=== PATIENT | male | born 1970 | race Caucasian/White ===

== ENCOUNTER 2020-04-07 12:38 | Emergency (ER) | payer OTHER, SELFPAY ==
[2020-04-07 12:39] VITALS: BP 125/101; PULSE 101; RESP 16; TEMP 36.7; O2SAT 98; BMI 29.5
--- NOTE | 2020-04-07 13:30 | CT_ITS ---
STUDY: CT BRAIN WITHOUT CONTRAST REASON FOR EXAM: Male, 49 years old. LIGHTHEADED/DIZZY THIS AM, N/V RADIATION DOSAGE (If Supplied By Facility): CTDIvol = ( 44.99 ) mGy, DLP = ( 745.49 ) mGycm TECHNIQUE: Transaxial CT imaging of the brain was performed without administration of intravenous contrast material. Individualized dose optimization techniques were used for this CT. COMPARISON: No relevant priors. FINDINGS: Normal soft tissue structures. Normal calvarium. Normal size ventricles and extra-axial spaces for the patient''s age. Normal white matter tracts of the cerebral hemispheres. Normal basal ganglia and thalami. Normal brainstem. Normal cerebellum. There is no intracranial hemorrhage. There are no findings of an acute ischemic infarction. Partial opacification of the left maxillary sinus. Mucosal thickening of the right maxillary sinus as well as the ethmoid sinus. Mucosal thickening of the right sphenoid sinus. Nasal septal deviation towards the right side of the midline. CT/Brain/Head without Contrast IMPRESSION: Normal unenhanced CT scan of the brain. Sinusitis. Electronically Signed: Brian Lockwood MD at 14:10 EST , Service support ,
--- NOTE | 2020-04-07 13:30 | EKG12_ITS ---
Test Reason : DIZZY Blood Pressure : / mmHG Vent. Rate : 100 BPM Atrial Rate : 100 BPM P-R Int : 128 ms QRS Dur : 082 ms QT Int : 336 ms P-R-T Axes : 056 063 032 degrees QTc Int : 433 ms Normal sinus rhythm Nonspecific T wave abnormality Abnormal ECG Confirmed by NATIVIDAD ELAINE, NICOLÁS ([id number]), science editor KAROL KAUR ([id number]) on 04/10/2020 1:38:39 PM Referred By: COREY Confirmed By:NICOLÁS HENSON MD
--- NOTE | 2020-04-07 13:32 | ED.DCSUM_ITS ---
- ER Visit Summary Date of Service: 04/07/20 Chief Complaint: Dizziness History of Present Illness: The patient is a 49 M presenting with dizziness. Patient states that he started having a dizzy, lightheadedness feeling. He felt like his eyes were moving. He felt off balance. He had nausea and vomiting. He states the symptoms worsened with turning his head. No symptoms when remaining still. Denies recent injury. Denies headache. Denies chest pain or shortness of breath. Denies fever. No other complaints. Physical Examination: Vitals are stable. Patient is afebrile. Alert no acute distress. HEENT exam is unremarkable. Neck is supple. Lungs are clear and equal bilaterally. Heart is regular rate and rhythm. Abdomen is soft nontender nondistended. Extremities are unremarkable. Skin is warm and dry. No focal neurologic deficit. Normal strength and sensation Remainder of exam is unremarkable. Emergency Department Course and Treatment: EKG is sinus rate of 100 with no acute ischemic changes. CT head shows normal unenhanced CT scan of the brain. CBC, chemistries unremarkable. Troponin is negative. On reevaluation, patient's symptoms have resolved. Delta troponin will be obtained and is pending. This will be checked out to the oncoming physician. If delta troponin is negative he will be sent home with prescription for Antivert. He is given Dr. Everett on-call for no doctor for follow-up. Advised return to ED for worsening complaints. Disposition: Pending Impression: Positional vertigo This note was generated with Immediately dictation software. It may contain incorrect words, spelling, and punctuation that were not noted in review of the chart prior to signing ED Disposition - Plan for ED Patient: Instructions: ED BPV Vertigo Prescriptions: Meclizine HCl [Antivert] 25 mg PO TID PRN PRN #20 tab PRN Reason: Vertigo Prescription Printed Referrals: Torito Everett DO [NON CLINICAL AFFILIATE] -
[2020-04-07 13:54] LABS: Absolute Lymphocyte Count 1.34 X10^3/uL (0.83-4.51); Absolute Neutrophil Count 8.2 X10^3/uL (2.0-7.7); Basophil# 0.04 X10^3/uL; Basophil% 0.4 % (0-1); Eosinophil# 0.07 X10^3/uL; Eosinophils% 0.7 % (0-5); Hematocrit 49.1 % (40-54); Lymphocyte # 1.34 X10^3/ul (4.0); Lymphocyte % 12.9 % (19-41); Mean Corp Hgb Conc 32.6 g/dL (32-36); Mean Corpuscular Hgb 30.4 pg (27.0-32.0); Mean Corpuscular Volume 93.2 fL (80-94); Mean Platelet Vol. 9.2 fl (6.2-12.0); Monocyte# 0.63 X10^3/uL; Monocyte% 6.1 % (0-10); NRBC Flagged by Analyzer 0 % (0-5); Neutrophil # 8.24 X10^3/uL (2.7-7.7); Neutrophil % 79.3 % (47-70); Platelet Count 445 K/mm3 (150-450); RBC Distribution Width CV 13.1 % (11.6-14.6); RBC Distribution Width SD 44.5 fl (35.1-43.9); Red Blood Count 5.27 M/mm3 (4.6-6.2); White Blood Count 10.4 K/mm3 (4.4-11.0)
[2020-04-07 14:11] LABS: Anion Gap 5 (5-15); BUN 11 mg/dL (7-18); BUN/Creat Ratio 9.5 RATIO (10-20); Calcium,Total 9.2 mg/dL (8.5-10.1); Chloride 105 mmol/L (98-107); Creatinine, Serum 1.16 mg/dL (0.70-1.30); EST Glomerular Filtration Rate 70 mL/min (>60); Est Glom Filt Rate - Afr Amer 85 mL/min (>60); Estimated Creatinine Clearance 75.34 ml/min; Glucose 136 mg/dL (74-106); Potassium 3.8 mmol/L (3.5-5.1); Sodium Level 138 mmol/L (136-145)
[2020-04-07 15:21] VITALS: BP 112/65; PULSE 85; RESP 15; O2SAT 99
--- NOTE | 2020-04-07 15:41 | ED.DEP ---
ED Disposition - Plan for ED Patient: Instructions: ED BPV Vertigo Prescriptions: Meclizine HCl [Antivert] 25 mg PO TID PRN PRN #20 tab PRN Reason: Vertigo Prescription Printed Referrals: Torito Everett DO [NON CLINICAL AFFILIATE] -
[2020-04-07 17:18] VITALS: BP 126/86; PULSE 84; RESP 14; O2SAT 96
[2020-04-07 18:02] VITALS: BP 133/91; PULSE 88; RESP 17; O2SAT 98
== END 2020-04-07 18:10 | disposition home or self-care (01) ==
LOC: ED 14:40
PROVIDERS: Emergency Provider Emergency Medicine
DX: H81.10 Benign paroxysmal vertigo, unspecified ear (principal)
CPT/HCPCS: 36415; 70450; 80048; 84484; 85025; 93005; 99284; A4216

== ENCOUNTER → 2020-07-17 07:19 | Outpatient (CLI) | payer OTHER, SELFPAY ==
[2020-07-17 10:10] LABS: Hematocrit 52.7 % (40-54); Mean Corp Hgb Conc 32.3 g/dL (32-36); Mean Corpuscular Hgb 30.2 pg (27.0-32.0); Mean Corpuscular Volume 93.6 fL (80-94); Mean Platelet Vol. 9.9 fl (6.2-12.0); Platelet Count 304 K/mm3 (150-450); RBC Distribution Width SD 48.5 fl (35.1-43.9); Red Blood Count 5.63 M/mm3 (4.6-6.2); White Blood Count 6.3 K/mm3 (4.4-11.0)
[2020-07-17 10:53] LABS: Hemoglobin A1c 5.1 % (3.8-5.6)
[2020-07-17 11:08] LABS: Homocysteine 8.3 umol/L (3.2-10.7)
[2020-07-17 12:17] LABS: Progesterone Level 0.92 ng/mL (See Comment); T3 Total - Triiodothyronine 1.29 ng/mL (0.6-1.81); Vitamin B12 710 pg/mL (211-911); Vitamin D,25 Hydroxy 77.4 ng/mL
[2020-07-17 13:38] LABS: ALB/GLOB Ratio 1.1 RATIO (0.9-2.4); AST(SGOT) 27 U/L (15-37); Alanine Aminotransfer ALT/SGPT 58 U/L (16-61); Albumin, Serum 3.8 g/dL (3.2-5.0); Alkaline Phosphatase 46 U/L (45-117); Anion Gap 6 (5-15); BUN 16 mg/dL (7-18); BUN/Creat Ratio 15.7 RATIO (10-20); CRP < 2.90 mg/L (0.0-3.0); Calcium,Total 9.3 mg/dL (8.5-10.1); Chloride 105 mmol/L (98-107); Cholesterol 141 mg/dL (200); Creatinine, Serum 1.02 mg/dL (0.70-1.30); EST Glomerular Filtration Rate 82 mL/min (>60); Est Glom Filt Rate - Afr Amer 99 mL/min (>60); Follicle Stimulating Hormone < 0.2 mIU/mL; Globulin 3.4 g/dL (2.2-4.2); Glucose 97 mg/dL (74-106); High Density Lipoprotein 45 mg/dL; Iron 100 ug/dL (65-175); Luteinizing Hormone < 0.2 mIU/mL; Magnesium 1.9 mg/dL (1.6-2.6); PSA,Total - Annual Screen 1.59 ng/mL (0.00-4.00); Potassium 3.8 mmol/L (3.5-5.1); Prolactin 11.4 ng/mL; Protein, Total 7.2 g/dL (6.4-8.2); Sodium Level 140 mmol/L (136-145); T4 Free Direct 0.79 ng/dL (0.76-1.46); T4 Total, Thyroxin 5.6 ug/dL (4.5-12.1); Thyroid Stim Hormone (TSH) 3.74 uIU/mL (0.358-3.74); Triglycerides 65 mg/dL; Very Low Density Lipoprotein 13 mg/dL (5-40)
[2020-07-23 12:08] LABS: Insulin Like Growth Factor 208 ng/mL (74-255)
[2020-07-23 14:14] LABS: Sex Hormone-binding Globulin 25.2 nmol/L (19.3-76.4); Testosterone, % Free 4.27 % (1.50-4.20); Testosterone, Total > 1500 ng/dL (264-916)
== END ==
PROVIDERS: Referring Provider Nurse Practitioner Family; Visit Provider Nurse Practitioner Family
DX: R53.82 Chronic fatigue, unspecified (principal); M62.81 Muscle weakness (generalized)
CPT/HCPCS: 36415; 80053; 80061; 82306; 82533; 82607; 82627; 82670; 82746; 83001; 83002; 83036; 83090; 83540; 83735; 84144; 84146; 84153; 84270; 84305; 84402; 84403; 84436; 84439; 84443; 84480; 85027; 86140; 82626; G0103

== ENCOUNTER → 2021-09-23 | Outpatient (CLI) | payer OTHER, SELFPAY ==
[2021-09-23 18:09] LABS: Hematocrit 43.5 % (40-54); Hemoglobin 14.5 g/dL (13.0-16.5); Mean Corp Hgb Conc 33.3 g/dL (32-36); Mean Corpuscular Hgb 31.5 pg (27.0-32.0); Mean Corpuscular Volume 94.4 fL (80-94); Platelet Count 274 K/mm3 (150-450); RBC Distribution Width CV 13.1 % (11.6-14.6); RBC Distribution Width SD 45.1 fl (35.1-43.9); Red Blood Count 4.61 M/mm3 (4.6-6.2); White Blood Count 6.6 K/mm3 (4.4-11.0)
[2021-09-23 18:41] LABS: Progesterone Level 0.21 ng/mL (See Comment); T3 Total - Triiodothyronine 1.27 ng/mL (0.6-1.81); Vitamin B12 862 pg/mL (211-911); Vitamin D,25 Hydroxy 118.4 ng/mL
[2021-09-23 18:54] LABS: Hemoglobin A1c 5.3 % (3.8-5.6)
[2021-09-23 19:43] LABS: ALB/GLOB Ratio 1.2 RATIO (0.9-2.4); AST(SGOT) 26 U/L (15-37); Alanine Aminotransfer ALT/SGPT 65 U/L (16-61); Alkaline Phosphatase 56 U/L (45-117); Anion Gap 7 (5-15); BUN 16 mg/dL (7-18); CRP, High Sensitivity Cardiac 0.48 mg/L; Calcium,Total 9.6 mg/dL (8.5-10.1); Chloride 107 mmol/L (98-107); Cholesterol 193 mg/dL (200); Creatinine, Serum 1.14 mg/dL (0.70-1.30); EST Glomerular Filtration Rate 71 mL/min (>60); Est Glom Filt Rate - Afr Amer 86 mL/min (>60); Estradiol 17.4 pg/mL; Follicle Stimulating Hormone 4.9 mIU/mL; Globulin 3.3 g/dL (2.2-4.2); Glucose 91 mg/dL (74-106); High Density Lipoprotein 60 mg/dL; Iron 81 ug/dL (65-175); Luteinizing Hormone 5.7 mIU/mL; Magnesium 2.1 mg/dL (1.6-2.6); PSA,Total - Annual Screen 1.01 ng/mL (0.00-4.00); Prolactin 13.5 ng/mL; Protein, Total 7.3 g/dL (6.4-8.2); Sodium Level 141 mmol/L (136-145); T4 Free Direct 0.89 ng/dL (0.76-1.46); T4 Total, Thyroxin 8.4 ug/dL (4.5-12.1); Thyroid Stim Hormone (TSH) 4.05 uIU/mL (0.358-3.74); Triglycerides 150 mg/dL; Very Low Density Lipoprotein 30 mg/dL (5-40)
[2021-09-23 19:56] LABS: Homocysteine 7.2 umol/L (3.2-10.7)
[2021-09-30 14:09] LABS: Insulin Like Growth Factor 122 ng/mL (74-255); Testosterone, % Free 1.57 % (1.50-4.20); Testosterone, Free 3.14 ng/dL (5.00-21.00)
[2021-09-30 16:31] LABS: Sex Hormone-binding Globulin 36.4 nmol/L (19.3-76.4); Testosterone, Total 200 ng/dL (264-916)
== END | disposition home or self-care (01) ==
LOC: MTLAB 16:00
PROVIDERS: Referring Provider Nurse Practitioner Family; Visit Provider Nurse Practitioner Family
DX: M62.81 Muscle weakness (generalized) (principal); R53.82 Chronic fatigue, unspecified; R68.82 Decreased libido; Z12.5 Encounter for screening for malignant neoplasm of prostate
CPT/HCPCS: 36415; 80053; 80061; 82306; 82533; 82607; 82627; 82670; 82746; 83001; 83002; 83036; 83090; 83540; 83735; 84144; 84146; 84153; 84270; 84305; 84402; 84403; 84436; 84439; 84443; 84480; 85027; 86141; 82626; G0103

== ENCOUNTER → 2021-12-09 | Outpatient (CLI) | payer OTHER, SELFPAY ==
[2021-12-09 10:59] LABS: Vitamin D,25 Hydroxy 139.3 ng/mL
[2021-12-09 11:07] LABS: T4 Free Direct 0.94 ng/dL (0.76-1.46); Thyroid Stim Hormone (TSH) 3.76 uIU/mL (0.358-3.74)
[2021-12-18 10:08] LABS: Testosterone, Free 7.24 ng/dL (5.00-21.00)
[2021-12-18 14:56] LABS: Testosterone, Total 329 ng/dL (264-916); Thyroid Peroxidase AB 29 IU/mL (0-34)
== END | disposition home or self-care (01) ==
LOC: MTLAB 07:02
PROVIDERS: Referring Provider Internal Medicine Endocrinology, Diabetes & Metabolism; Visit Provider Internal Medicine Endocrinology, Diabetes & Metabolism
DX: E29.1 Testicular hypofunction (principal); T45.2X1A Poisoning by vitamins, accidental (unintentional), initial encounter; R94.6 Abnormal results of thyroid function studies; E55.9 Vitamin D deficiency, unspecified
CPT/HCPCS: 36415; 82306; 84402; 84403; 84439; 84443; 86376

== ENCOUNTER → 2023-01-17 | Outpatient (CLI) | payer OTHER, SELFPAY ==
[2023-01-17 10:33] LABS: Absolute Lymphocyte Count 3.11 X10^3/uL (0.83-4.51); Absolute Neutrophil Count 6.7 X10^3/uL (2.0-7.7); Basophil# 0.08 X10^3/uL; Basophil% 0.7 % (0-1); Eosinophil# 0.43 X10^3/uL; Eosinophils% 3.6 % (0-5); Hematocrit 50.4 % (40-54); Hemoglobin 16.3 g/dL (13.0-16.5); Lymphocyte # 3.11 X10^3/ul (0.83-4.51); Lymphocyte % 26.3 % (19-41); Mean Corp Hgb Conc 32.3 g/dL (32-36); Mean Corpuscular Hgb 29.7 pg (27.0-32.0); Mean Corpuscular Volume 91.8 fL (80-94); Mean Platelet Vol. 9.9 fl (6.2-12.0); Monocyte# 1.49 X10^3/uL; Monocyte% 12.6 % (0-10); NRBC Flagged by Analyzer 0 % (0-5); Neutrophil # 6.66 X10^3/uL (2.7-7.7); Neutrophil % 56.2 % (47-70); Platelet Count 322 K/mm3 (150-450); RBC Distribution Width SD 47.5 fl (35.1-43.9); Red Blood Count 5.49 M/mm3 (4.6-6.2); White Blood Count 11.8 K/mm3 (4.4-11.0)
[2023-01-17 10:56] LABS: Vitamin D,25 Hydroxy 62.2 ng/mL
[2023-01-17 11:02] LABS: ALB/GLOB Ratio 0.9 RATIO (0.9-2.4); AST(SGOT) 27 U/L (15-37); Alanine Aminotransfer ALT/SGPT 48 U/L (16-61); Albumin, Serum 3.4 g/dL (3.2-5.0); Alkaline Phosphatase 36 U/L (45-117); Anion Gap 8 (5-15); BUN 10 mg/dL (7-18); BUN/Creat Ratio 9.1 RATIO (10-20); Calcium,Total 8.3 mg/dL (8.5-10.1); Chloride 106 mmol/L (98-107); Cholesterol 135 mg/dL (200); EST Glomerular Filtration Rate 74 mL/min (>60); Est Glom Filt Rate - Afr Amer 90 mL/min (>60); Globulin 3.6 g/dL (2.2-4.2); Glucose 92 mg/dL (74-106); High Density Lipoprotein 46 mg/dL; PSA,Total - Annual Screen 2.38 ng/mL (0.00-4.00); Potassium 3.8 mmol/L (3.5-5.1); Sodium Level 140 mmol/L (136-145); T4 Free Direct 0.82 ng/dL (0.76-1.46); Thyroid Stim Hormone (TSH) 3.98 uIU/mL (0.358-3.74); Triglycerides 67 mg/dL; Very Low Density Lipoprotein 13 mg/dL (5-40)
[2023-01-17 11:04] LABS: Hemoglobin A1c 5.2 % (3.8-5.6)
== END | disposition home or self-care (01) ==
LOC: MTLAB 07:08
PROVIDERS: PCP Internal Medicine; Referring Provider Internal Medicine; Visit Provider Internal Medicine
DX: Z00.00 Encounter for general adult medical examination without abnormal findings (principal); R94.6 Abnormal results of thyroid function studies; E55.9 Vitamin D deficiency, unspecified; R73.9 Hyperglycemia, unspecified; Z13.220 Encounter for screening for lipoid disorders; Z12.5 Encounter for screening for malignant neoplasm of prostate
CPT/HCPCS: 36415; 80053; 80061; 82306; 83036; 84153; 84439; 84443; 84481; 85025; G0103